=== PATIENT | female | born 1940 | race Caucasian/White ===

== ENCOUNTER 2021-04-19 10:05 | Inpatient (IN) | payer MEDICARE, OTHER ==
[~2021-04-19] VITALS: Ht 165.1 cm; Wt 57.6 kg
--- NOTE | 2021-04-19 10:05 | NUR ---
PT BIBRA 99 FROM FACILITY C/O LOW BP AROUND 80S SYSTOLIC AND WEAKNESS. PT IS AAOX1, NOT IN RESPIRATORY DISTRESS, V/S STABLE, KEPT RESTED AND COMFORTABLE. WILL CONTINUE TO MONITOR.
--- NOTE | 2021-04-19 10:17 | NUR ---
DAUGHTER AT BEDSIDE GIVING THE PATIENT'S MEDICAL HISTORY.
[2021-04-19] MEDS ORDERED: LANS15CA13 PO (10:29)
[2021-04-19] MEDS ORDERED: DULO60CA45 PO (10:29)
[2021-04-19] MEDS ORDERED: CALC1TAB30 PO (10:29)
[2021-04-19] MEDS ORDERED: HYDR500C PO (10:29)
[2021-04-19] MEDS ORDERED: TADA5TAB2 PO (10:29)
[2021-04-19] MEDS ORDERED: APIX2.5T PO (10:29)
[2021-04-19] MEDS ORDERED: LEVO50TA8 PO (10:29)
[2021-04-19] MEDS ORDERED: ROSU10TA2 PO (10:29)
[2021-04-19] MEDS ORDERED: MELA3TAB41 PO (10:29)
[2021-04-19] MEDS ORDERED: OXYB10TA30 PO (10:29)
[2021-04-19] MEDS ORDERED: MEMA10TA PO (10:29)
[2021-04-19] MEDS ORDERED: IV NS 0.9% 1,000 ML BAG IV ONE (10:30)
[2021-04-19 10:44] LABS: BASOPHILS % (AUTO) 0.2 % (0.0-2.0); EOSINOPHILS % (AUTO) 0.1 % (0.0-6.0); HEMATOCRIT 37 % (33-45); HEMOGLOBIN 10.6 g/dL (11.5-14.8); LYMPHOCYTES # (AUTO) 0.7 /CMM (0.8-4.8); LYMPHOCYTES % (AUTO) 5.2 % (20.0-44.0); MEAN CORPUSCULAR HGB CONC 29 g/dl (31.0-36.0); MEAN CORPUSCULAR VOLUME 84 fL (82-100); MONOCYTES # (AUTO) 0.9 /CMM (0.1-1.30); MONOCYTES % (AUTO) 7.1 % (2.0-12.0); NEUTROPHILS # (AUTO) 11.7 /CMM (1.8-8.9); NEUTROPHILS % (AUTO) 87.4 % (43.0-81.0); PLATELET COUNT (AUTO) 476 /CMM (150-450); RED BLOOD CELL COUNT(AUTO) 4.38 MIL/uL (4.0-5.2); WHITE BLOOD COUNT (AUTO) 13.4 K/uL (4.3-11.0)
[2021-04-19 10:58] LABS: ALANINE AMINOTRANSFERASE 22 U/L (12-78); ALBUMIN 2.9 g/dL (3.4-5.0); ALKALINE PHOSPHATASE 106 U/L (46-116); ASPARTATE AMINOTRANSFERASE 28 U/L (15-37); BILIRUBIN,DIRECT 0.1 mg/dL (0.0-0.2); BILIRUBIN,TOTAL 0.4 mg/dL (0.2-1.0); CALCIUM, SERUM 8.2 mg/dL (8.5-10.1); CARBON DIOXIDE 26 mmol/L (21-32); CHLORIDE 104 mmol/L (98-107); CREATININE 1.5 mg/dL (0.6-1.3); GLUCOSE 184 mg/dL (74-106); POTASSIUM 3.8 mmol/L (3.5-5.1); SODIUM SERUM 140 mmol/L (136-145); TOTAL PROTEIN, SERUM 6.3 g/dL (6.4-8.2); UREA NITROGEN, BLOOD 24 mg/dL (7-18)
--- NOTE | 2021-04-19 11:00 | NUR ---
PATIENT PLACED ON A BED, STS SHE NEEDS TO TRY AGAIN LATER, SHE CANNOT PROVIDE URINE AT THIS TIME.
--- NOTE | 2021-04-19 11:55 | NUR ---
On room air with spo2 of 80%. Patient is shivering, feels cold. Placed patient on 5lpm via nc with spo2 of 94%.
--- NOTE | 2021-04-19 11:56 | NUR ---
PATIENT PLACED ON A BED OLVERA.
[2021-04-19] MEDS ORDERED: PIPERACILLIN /TAZOBACTAM 3.375 G in IV D5W 50 ML IV ONE (12:00)
[2021-04-19] MEDS ORDERED: VANCOMYCIN 1 GM in IV D5W 250 ML IV ONE (12:00)
[2021-04-19] MEDS ORDERED: ACETAMINOPHEN 325 MG TABLET ONE (12:11)
--- NOTE | 2021-04-19 12:24 | NUR ---
covid negative per lab
--- NOTE | 2021-04-19 12:28 | NUR ---
room 324-2
[2021-04-19] MEDS ORDERED: ACETAMINOPHEN 325 MG TABLET PO ONE (12:30)
[2021-04-19 12:50] LABS: BILIRUBIN,URINE Negative (NEGATIVE); COLOR,URINE YELLOW (YELLOW); LEUKOCYTE ESTERASE ,URINE Moderate (NEGATIVE); NITRITE, URINE Positive (NEGATIVE); PROTEIN,URINE 30 mg/dl (NEGATIVE); UGLUCOSE Negative (NEGATIVE); UROBILINOGEN,URINE 0.2 EU/dL (0.2)
--- NOTE | 2021-04-19 12:52 | NUR ---
REPORT GIVEN TO JULIO GORMAN FOR PHILIP
--- NOTE | 2021-04-19 12:54 | NUR ---
STRAIGHT CATHETER DONE VIA STERILE TECHNIQUE, URINE SENT TO LAB.
--- NOTE | 2021-04-19 12:54 | NUR ---
PATIENT IS NOW ON 3LPM VIA NC WITH SPO2 OF 97%.
[2021-04-19 13:00] LABS: BACTERIA,URINE 2+ /HPF (None Seen); SQUAMOUS EPITHELIAL CELL,UR Few /HPF (None Seen); WBC,URINE 21-50 /HPF (0-3)
--- NOTE | 2021-04-19 13:07 | NUR ---
PATIENT TRANSFERRED TO ROOM 324 VIA ACLS PROTOCOL. NO DISTRESS NOTED. NEEDS ATTENDED.
--- NOTE | 2021-04-19 13:10 | NUR ---
RN NOTES PATIENT ARRIVED AT UNIT IN ROOM 324-2 VIA ROSANGELARNEY, ACCOMPANIED BY 2 ER NURSES. BEDSIDE ENDORSEMENT GIVEN BY JULIO VERDUGO.
--- NOTE | 2021-04-19 13:10 | NUR ---
PATTERN WEAVER NOTES RESIDENT ADMITTED FROM ER PER [place] ACCOMPANIED BY 2 NURSES. PATIENT TRANSFERRED TO BED AND COMFORT MEASURES PROVIDED. PATIENT MAINTAINED ON MODERATE TO HIGH BACK REST.PATIENT ALERT AND ORIENTED TO SELF AND DOES NOT TALK MUCH. PATIENT ENDORSED AT BEDSIDE BY DIGESTER HAND KARTIK. BODY CHECK DONE AND SKIN IS INTACT. PATIENT WITH LEFT AC G#18 PATENT AND INTACT. VITAL SIGNS WITHIN NORMAL LIMITS. NO COMPLAINT OF PAIN UPON ADMISSION. BED AT LOWEST POSITION AND LOCKED FOR SAFETY. SIDERAILS UP. WILL CONTINUE TO MONITOR PATIENT
[2021-04-19 13:11] VITALS: BP 120/54
[2021-04-19 13:20] VITALS: BP 120/54
[2021-04-19] MEDS ORDERED: ZOLPIDEM TARTRATE 5 MG TABLET PO PRN (15:00)
[2021-04-19] MEDS ORDERED: MAG HYDROX/AL HYDROX/SIMETH 30 ML UDC PO PRN (15:00)
[2021-04-19] MEDS ORDERED: MAGNESIUM HYDROXIDE 30 ML UDC PO PRN (15:00)
[2021-04-19] MEDS ORDERED: HYDROCODONE/APAP 5/325MG TABLET PO PRN (15:00)
[2021-04-19] MEDS ORDERED: Z GUARD REMEDY 2 OZ OINT TP PRN (15:00)
[2021-04-19] MEDS ORDERED: ONDANSETRON HCL/PF 4 MG/2 ML VIAL IVP PRN (15:00)
[2021-04-19] MEDS: IV NS 0.9% 1,000 ML IV SCH (15:27)
[2021-04-19 16:00] VITALS: BP 104/52
--- NOTE | 2021-04-19 16:00 | NUR ---
RN NOTES SPOKE W/ PATIENT'S DAUGHTER, INESSA, AND WAS INFORMED IF THE HOSPITALIST CAN CALL PATIENT'S DOCTOR, DR. CONSTANTIN BLANKENSHIP ([phone]), IN THE MORNING FOR AN UPDATE. WILL ENDORSE TO DIRECTOR CLINICAL DATA NURSE TO ENDORSE IN THE MORNING. Addendum: 04/19/21 at 1608 by TONEY ESTEVEZ RN DTR WILL ALSO BRING CIALIS AND MELATONIN MEDICATIONS FROM HOME.
[2021-04-19] MEDS: OXYBUTYNIN CHLORIDE ER 5 MG TAB PO SCH (17:18)
[2021-04-19] MEDS: MEMANTINE HCL 5 MG TABLET PO SCH (17:18)
[2021-04-19] MEDS: DULOXETINE HCL 30 MG CAPSULE.DR PO SCH (17:18)
[2021-04-19] MEDS: CALCIUM CARBONATE (1250) 500 MG TABLET PO SCH (17:18)
[2021-04-19] MEDS: PANTOPRAZOLE 40 MG TABLET.DR PO SCH (17:18)
[2021-04-19] MEDS: CHOLECALCIFEROL (VITAMIN D 3) 400 UNIT TABLET PO SCH (17:19)
[2021-04-19] MEDS: APIXABAN 2.5 MG TABLET PO SCH (17:37)
[2021-04-19] MEDS: PIPERACILLIN /TAZOBACTAM 3.375 G in IV D5W 50 ML IV SCH ×2 (17:39→23:15)
--- NOTE | 2021-04-19 18:28 | NUR ---
RN NOTES RECEIVED CIALIS, MELATONIN, AND DONEPEZIL MEDICATIONS FROM PATIENT'S DTR. WILL DELIVER TO PHARMACY.
[2021-04-19] MEDS: ACETAMINOPHEN 325 MG TABLET PO PRN (18:46)
--- NOTE | 2021-04-19 18:47 | NUR ---
PATIENT'S DAUGHTER SAID HER MOM COMPLAINED OF GENERALIZED ACHING PAIN OF 3/10. PATIENT WITH PRN MEDICATION ACETAMINOPHEN GIVEN ORDERED. WILL CONTINUE TO MONITOR PATIENT.
--- NOTE | 2021-04-19 19:25 | NUR ---
RN CLOSING NOTE PATIENT AWAKE AND ORIENTED X 1 WITH NO SIGNS OF DISTRESS. MAINTAINED ON NORMAL BODY ALIGNMENT. PATIENT ON OXYGEN AT 3LITERS PER MINUTE. WITH NO SIGNS OF DISTRESS. COMFORT MEASURES PROVIDED. SAFETY MEASURES MAINTAINED. BED IN LOCKED AND LOWEST POSITION, SIDE RAILS UP. ALL NEEDS MET AND ATTENDED. ENDORSED TO DAY SHIFT NURSE FOR PHILIP.
--- NOTE | 2021-04-19 19:30 | NUR ---
TELE-RN OPENING NOTE RECEIVED PATIENT RESTING IN BED. AWAKE, ALERT AND ORIENTED X 1. NO S/SX OF PAIN AT THIS TIME. IV ACCESS TO LEFT AC INTACT AND PATENT. CONTINUES ON IVF NS @ 100ML/HR. CONTINUES ON IV ABX. TELE MONITOR READING SR 90. CONTINUES ON 3L O2 VIA NC WITH NO S/SX OF RESPIRATORY DISTRESS NOTED. CALL LIGHT WITHIN REACH. ASPIRATION, FALL AND SAFETY PRECAUTIONS MAINTAINED. WILL CONTINUE TO MONITOR.
--- NOTE | 2021-04-19 19:45 | NUR ---
TELE-RN NOTE RECEIVED CALL FROM LAB WITH NEW LACTIC ACID LEVEL OF 2.4. LACTIC ACID IS DOWNTRENDING AT THIS TIME. MD AWARE. WILL CONTINUE TO MONITOR.
[2021-04-19 20:00] VITALS: BP 106/56
--- NOTE | 2021-04-19 20:45 | NUR ---
TELE-RN NOTE PATIENT NOTED WITH TEMP OF 99.3. FACIAL FLUSHING NOTED. INITIATED COOLING MEASURES. WILL RECHECK TEMP.
[2021-04-19] MEDS: DONEPEZIL 5 MG TABLET PO SCH (21:03)
[2021-04-20] VITALS: BP 127/95
[2021-04-20] MEDS: ACETAMINOPHEN 325 MG TABLET PO PRN ×3 (02:00→14:56)
[2021-04-20] MEDS: IV NS 0.9% 1,000 ML IV SCH (02:00)
--- NOTE | 2021-04-20 02:00 | NUR ---
TELE-RN NOTE PATIENT NOTED WITH TEMP OF 101.8. CONTINUING COOLING MEASURES AND ADMINISTERED TYLENOL WITH PENDING EFFECT. BLOOD CX FROM 04/19 PENDING. SEQUINS SPOOLER MD WILKES NOTIFIED WITH NO NEW ORDERS AT THIS TIME. WILL CONTINUE TO MONITOR.
[2021-04-20 04:00] VITALS: BP 124/64
--- NOTE | 2021-04-20 04:28 | NUR ---
TELE-RN NOTE PATIENTS IV TO LEFT AC INFILTRATED. NO S/SX OF SWELLING AT OLD IV SITE. IV REMOVED AND PRESSURE DRESSING APPLIED. NEW IV INSERTED TO RIGHT HAND #20G. CONTINUES ON IVF NS @ 100ML/HR. WILL CONTINUE TO MONITOR.
[2021-04-20] MEDS: PIPERACILLIN /TAZOBACTAM 3.375 G in IV D5W 50 ML IV SCH ×4 (05:02→23:49)
[2021-04-20 06:11] LABS: BASOPHILS % (AUTO) 0.1 % (0.0-2.0); EOSINOPHILS % (AUTO) 0.1 % (0.0-6.0); HEMATOCRIT 35 % (33-45); HEMOGLOBIN 10.1 g/dL (11.5-14.8); LYMPHOCYTES # (AUTO) 0.7 /CMM (0.8-4.8); LYMPHOCYTES % (AUTO) 4.7 % (20.0-44.0); MEAN CORPUSCULAR HGB CONC 29 g/dl (31.0-36.0); MEAN CORPUSCULAR VOLUME 83 fL (82-100); MONOCYTES # (AUTO) 0.7 /CMM (0.1-1.30); MONOCYTES % (AUTO) 4.8 % (2.0-12.0); NEUTROPHILS # (AUTO) 12.7 /CMM (1.8-8.9); NEUTROPHILS % (AUTO) 90.3 % (43.0-81.0); PLATELET COUNT (AUTO) 522 /CMM (150-450); RED BLOOD CELL COUNT(AUTO) 4.17 MIL/uL (4.0-5.2)
--- NOTE | 2021-04-20 06:30 | NUR ---
TELE-RN CLOSING NOTE PATIENT CURRENTLY SLEEPING IN BED. ALERT AND ORIENTED X 1. NO S/SX OF PAIN AT THIS TIME. IV ACCESS TO RIGHT HAND INTACT AND PATENT. CONTINUES ON IVF NS @ 100ML/HR. CONTINUES ON IV ABX. TELE MONITOR READING SR 97. CONTINUES ON 3L O2 VIA NC WITH NO S/SX OF RESPIRATORY DISTRESS NOTED. PATIENT AFEBRILE WITH NO FACIAL FLUSHING NOTED. CALL LIGHT WITHIN REACH. ASPIRATION, FALL AND SAFETY PRECAUTIONS MAINTAINED. WILL ENDORSE PLAN OF CARE TO ONCOMING SHIFT.
[2021-04-20 06:56] LABS: CHOLESTEROL 99 mg/dL (<200); HDL CHOLESTEROL 36 mg/dL (40-60); LDL 36 mg/dL (0-99); TRIGLYCERIDES 118 mg/dL (30-150)
[2021-04-20 06:58] LABS: CALCIUM, SERUM 7.3 mg/dL (8.5-10.1); CARBON DIOXIDE 25 mmol/L (21-32); CHLORIDE 106 mmol/L (98-107); CREATININE 1.4 mg/dL (0.6-1.3); GLUCOSE 130 mg/dL (74-106); MAGNESIUM 1.9 mg/dL (1.8-2.4); PHOSPHORUS 3.8 mg/dL (2.5-4.9); POTASSIUM 3.5 mmol/L (3.5-5.1); SODIUM SERUM 141 mmol/L (136-145); UREA NITROGEN, BLOOD 20 mg/dL (7-18)
--- NOTE | 2021-04-20 07:56 | NUR ---
DOMESTIC VIOLENCE COUNSELOR OPENING NOTE PATIENT IS IN NO ACUTE DISTRESS, PATIENT IS IN BE RESTING. PATIENT IS ON 3L OXYGEN ON NC. PATIENT IS ON TELE MONITOR READING SR WITH PVCs HEAR RATE 90s. SAFETY PRECAUTIONS ARE ON. BED IS LOCKED IN THE LOWEST POSITION, WITH SIDE RAILS UP, CALL LIGHT WITHIN THE REACH, WILL CONTINUE TO MONITOR CLOSELY.
[2021-04-20 08:25] VITALS: BP 113/88
[2021-04-20] MEDS: LEVOTHYROXINE SODIUM 50 MCG TABLET PO SCH (08:45)
[2021-04-20] MEDS: PANTOPRAZOLE 40 MG TABLET.DR PO SCH ×2 (08:46→17:57)
[2021-04-20] MEDS: ATORVASTATIN 10 MG TABLET PO SCH (08:46)
[2021-04-20] MEDS: TADALAFIL 2.5 MG PO SCH ×2 (08:46→17:56)
[2021-04-20] MEDS: CHOLECALCIFEROL (VITAMIN D 3) 400 UNIT TABLET PO SCH ×2 (08:46→17:56)
[2021-04-20] MEDS: MEMANTINE HCL 5 MG TABLET PO SCH ×2 (08:46→17:56)
[2021-04-20] MEDS: CALCIUM CARBONATE (1250) 500 MG TABLET PO SCH ×2 (08:46→17:55)
[2021-04-20] MEDS: HYDROXYUREA 500 MG CAPSULE PO SCH (08:47)
[2021-04-20] MEDS: APIXABAN 2.5 MG TABLET PO SCH ×2 (08:49→17:56)
--- NOTE | 2021-04-20 08:52 | NUR ---
VICE PRESIDENT INVESTOR RELATIONS NOTE PATIENT HAS A FEVER OF 103, COOLING MEASURES APPLIED, TYLENOL 650MG ADMINISTERED, WILL REASSESS.
[2021-04-20] MEDS ORDERED: VANCOMYCIN HCL 0.75 GM in IV D5W 250 ML IV SCH (13:00)
--- NOTE | 2021-04-20 13:00 | NUR ---
NEUROSURGICAL NURSE NOTE PATIENT HAD A MIDLINE INSERTION BISHNU 18 AT LEFT UPPER ARM
[2021-04-20] MEDS ORDERED: ACETAMINOPHEN 325 MG TABLET PO PRN (15:00)
[2021-04-20 15:53] VITALS: BP 130/81
[2021-04-20] MEDS: DULOXETINE HCL 30 MG CAPSULE.DR PO SCH (17:55)
[2021-04-20] MEDS: OXYBUTYNIN CHLORIDE ER 5 MG TAB PO SCH (17:56)
[2021-04-20] MEDS: MELATONIN 3MG PO SCH (17:57)
--- NOTE | 2021-04-20 19:24 | NUR ---
WEB APPLICATIONS ARCHITECT CLOSING NOTE PATIENT IS IN NO ACUTE DISTRESS, PATIENT IS IN BE RESTING. PATIENT IS ON 3L OXYGEN ON NC. PATIENT IS ON TELE MONITOR READING SR WITH PVCs HEAR RATE 80ss. SAFETY PRECAUTIONS ARE ON. BED IS LOCKED IN THE LOWEST POSITION, WITH SIDE RAILS UP, CALL LIGHT WITHIN THE REACH, ENDORSE PATIENT TO YARN COMBER NURSE FOR PHILIP.
[2021-04-20 20:00] VITALS: BP 115/59
[2021-04-20] MEDS: DONEPEZIL 5 MG TABLET PO SCH (22:11)
[2021-04-21] VITALS: BP 116/56
[2021-04-21] MEDS: ACETAMINOPHEN 325 MG TABLET PO PRN ×3 (01:12→17:10)
--- NOTE | 2021-04-21 01:16 | NUR ---
MS/TELE/RN TEMP 100.0 F, TYLENOL 650 MG PO WAS GIVEN ORDERED. WILL MONITOR.
[2021-04-21 04:00] VITALS: BP 105/56
[2021-04-21] MEDS: IV NS 0.9% 1,000 ML IV PRN ×2 (04:06→18:30)
[2021-04-21] MEDS: PIPERACILLIN /TAZOBACTAM 3.375 G in IV D5W 50 ML IV SCH ×3 (06:08→18:18)
--- NOTE | 2021-04-21 06:14 | NUR ---
MS/TELE/RN PATIENT IS STILL SLEEPING AT THIS TIME, APPEAR COMFORTABLE, NO SIGNS OF DISTRESS NOTED, CALL LIGHT IN REACH, ALL NEEDS ATTENDED AT THIS TIME, WILL CONTINUE TO MONITOR.
[2021-04-21 06:48] LABS: BASOPHILS # (AUTO) 0.1 /CMM (0.0-0.2); BASOPHILS % (AUTO) 0.4 % (0.0-2.0); EOSINOPHILS % (AUTO) 0.1 % (0.0-6.0); HEMATOCRIT 31 % (33-45); HEMOGLOBIN 9.3 g/dL (11.5-14.8); LYMPHOCYTES # (AUTO) 0.7 /CMM (0.8-4.8); LYMPHOCYTES % (AUTO) 5.1 % (20.0-44.0); MEAN CORPUSCULAR HGB CONC 30 g/dl (31.0-36.0); MEAN CORPUSCULAR VOLUME 83 fL (82-100); MONOCYTES % (AUTO) 7.3 % (2.0-12.0); NEUTROPHILS # (AUTO) 12.5 /CMM (1.8-8.9); NEUTROPHILS % (AUTO) 87.1 % (43.0-81.0); PLATELET COUNT (AUTO) 583 /CMM (150-450); RED BLOOD CELL COUNT(AUTO) 3.77 MIL/uL (4.0-5.2); WHITE BLOOD COUNT (AUTO) 14.3 K/uL (4.3-11.0)
--- NOTE | 2021-04-21 07:58 | NUR ---
RN/TELE OPENING NOTES RECEIVED PATIENT IN BED. ASLEEP BUT EASILY WOKEN UP WITH VERBAL CUES. PATIENT IS ON 2LPM OF OXYGEN ON NASAL CANNULA. PATIENT IS ON TELE MONITOR READING SR HEAR RATE AT 78. SAFETY PRECAUTIONS IN PLACE. BED IS LOCKED IN THE LOWEST POSITION, WITH SIDE RAILS UP, CALL LIGHT WITHIN THE REACH, WILL CONTINUE TO MONITOR..
[2021-04-21 08:12] VITALS: BP 109/54
[2021-04-21] MEDS: LEVOTHYROXINE SODIUM 50 MCG TABLET PO SCH (08:16)
[2021-04-21] MEDS: MEMANTINE HCL 5 MG TABLET PO SCH ×2 (09:20→17:07)
[2021-04-21] MEDS: ATORVASTATIN 10 MG TABLET PO SCH (09:20)
[2021-04-21] MEDS: CALCIUM CARBONATE (1250) 500 MG TABLET PO SCH ×2 (09:20→17:07)
[2021-04-21] MEDS: PANTOPRAZOLE 40 MG TABLET.DR PO SCH ×2 (09:20→17:07)
[2021-04-21] MEDS: CHOLECALCIFEROL (VITAMIN D 3) 400 UNIT TABLET PO SCH ×2 (09:20→17:07)
[2021-04-21] MEDS: APIXABAN 2.5 MG TABLET PO SCH ×2 (09:21→17:08)
[2021-04-21] MEDS: TADALAFIL 2.5 MG PO SCH (09:24)
[2021-04-21] MEDS: HYDROXYUREA 500 MG CAPSULE PO SCH (09:24)
[2021-04-21 11:08] LABS: CALCIUM, SERUM 7.2 mg/dL (8.5-10.1); CREATININE 1.3 mg/dL (0.6-1.3); MAGNESIUM 1.9 mg/dL (1.8-2.4); PHOSPHORUS 2.7 mg/dL (2.5-4.9); POTASSIUM 3.4 mmol/L (3.5-5.1)
[2021-04-21] MEDS: VANCOMYCIN 1 GM in IV D5W 250 ML IV SCH (14:37)
[2021-04-21 16:00] VITALS: BP 110/54
[2021-04-21] MEDS: DULOXETINE HCL 30 MG CAPSULE.DR PO SCH (17:07)
[2021-04-21] MEDS: OXYBUTYNIN CHLORIDE ER 5 MG TAB PO SCH (17:07)
--- NOTE | 2021-04-21 17:52 | NUR ---
CLINICAL LABORATORY ASSISTANT NOTES PER MD OK TO CHANGE ADMINISTRATION TIME OF DONEPEZIL FROM 2200 TO 1800 PER FAMILY'S REQUEST.
[2021-04-21] MEDS: DONEPEZIL 5 MG TABLET PO SCH (18:19)
[2021-04-21] MEDS: MELATONIN 3MG PO SCH (18:19)
--- NOTE | 2021-04-21 19:28 | NUR ---
MS/RN CLOSING NOTES RECEIVED PATIENT IN BED. RESTING. ALERT AND ORIENTED X1-2. PATIENT IS ON 2LPM OF OXYGEN ON NASAL CANNULA. PATIENT DISCHARGED FROM TELE AND NOW ON MED/SURG. SAFETY PRECAUTIONS IN PLACE. BED IS LOCKED IN THE LOWEST POSITION, WITH SIDE RAILS UP, CALL LIGHT WITHIN THE REACH, WILL ENDORSE TO THE NEXT SHIFT FOR CONTINUITY OF CARE.
[2021-04-21 20:00] VITALS: BP 105/57
--- NOTE | 2021-04-21 20:00 | NUR ---
MS/TELE/RN PATIENT IS SLEEPING, APPEAR COMFORTABLE, NO SIGNS OF DISTRESS NOTED, CALL LIGHT IN REACH, WILL MONITOR.
[2021-04-21 20:10] VITALS: BP 105/57
--- NOTE | 2021-04-21 21:10 | NUR ---
MS/TELE/ POTASSIUM LEVEL THIS MORNING WAS 3.4, NOT REPLACED, NOTIFIED JESSICA MARROQUIN DNP, NO ORDER WAS RECEIVED.
[2021-04-22] MEDS: PIPERACILLIN /TAZOBACTAM 3.375 G in IV D5W 50 ML IV SCH ×5 (00:05→23:54)
[2021-04-22] MEDS: ACETAMINOPHEN 325 MG TABLET PO PRN ×3 (05:14→23:49)
[2021-04-22] MEDS: IV NS 0.9% 1,000 ML IV PRN (05:14)
--- NOTE | 2021-04-22 06:06 | NUR ---
MS/TELE/RN PATIENT IS SLEEPING AT THIS TIME, APPEAR COMFORTABLE, NO SIGNS OF DISTRESS NOTED, CALL LIGHT IN REACH. PATIENT HAD WAS SLEEPING MOSTLY DURING THE SHIFT, WAS AWAKE AT AROUND 0500 DURING MORNING CARE. ALL NEEDS ATTENDED AT THIS TIME, WILL CONTINUE TO MONITOR.
[2021-04-22 06:41] LABS: BASOPHILS # (AUTO) 0.1 /CMM (0.0-0.2); BASOPHILS % (AUTO) 0.5 % (0.0-2.0); EOSINOPHILS % (AUTO) 0.3 % (0.0-6.0); HEMATOCRIT 32 % (33-45); HEMOGLOBIN 9.6 g/dL (11.5-14.8); LYMPHOCYTES # (AUTO) 0.4 /CMM (0.8-4.8); MEAN CORPUSCULAR HGB CONC 30 g/dl (31.0-36.0); MEAN CORPUSCULAR VOLUME 82 fL (82-100); MONOCYTES % (AUTO) 7.1 % (2.0-12.0); NEUTROPHILS # (AUTO) 12.5 /CMM (1.8-8.9); NEUTROPHILS % (AUTO) 89.1 % (43.0-81.0); PLATELET COUNT (AUTO) 711 /CMM (150-450); RED BLOOD CELL COUNT(AUTO) 3.92 MIL/uL (4.0-5.2)
[2021-04-22 07:00] LABS: CALCIUM, SERUM 7.1 mg/dL (8.5-10.1); MAGNESIUM 1.9 mg/dL (1.8-2.4); PHOSPHORUS 1.7 mg/dL (2.5-4.9); POTASSIUM 3.2 mmol/L (3.5-5.1)
[2021-04-22 07:07] LABS: PTH, INTACT 94 pg/mL (15-65)
[2021-04-22] MEDS ORDERED: POTASSIUM CHLORIDE 20 MEQ TAB.PRT.SR PO ONE (07:30)
[2021-04-22] MEDS: LEVOTHYROXINE SODIUM 50 MCG TABLET PO SCH (07:39)
--- NOTE | 2021-04-22 07:56 | NUR ---
MS/RN OPENING NOTES RECEIVED PATIENT IN BED. AWAKE, ALERT AND ORIENTED X1-2. ABLE TO MAKE NEEDS KNOWN. PATIENT IS ON 2LPM OF OXYGEN ON NASAL CANNULA. PATIENT COMFORTABLE AT THIS TIME. NO S/S OF SOB OR DISTRESS NOTED. SAFETY PRECAUTIONS IN PLACE. BED IS LOCKED IN THE LOWEST POSITION, WITH SIDE RAILS UP, CALL LIGHT WITHIN THE REACH, WILL CONTINUE TO MONITOR PATIENT.
[2021-04-22 08:00] VITALS: BP 122/54
[2021-04-22] MEDS: MEMANTINE HCL 5 MG TABLET PO SCH ×2 (08:24→17:59)
[2021-04-22] MEDS: ATORVASTATIN 10 MG TABLET PO SCH (08:24)
[2021-04-22] MEDS: CALCIUM CARBONATE (1250) 500 MG TABLET PO SCH ×2 (08:25→17:59)
[2021-04-22] MEDS: PANTOPRAZOLE 40 MG TABLET.DR PO SCH ×2 (08:25→18:00)
[2021-04-22] MEDS: CHOLECALCIFEROL (VITAMIN D 3) 400 UNIT TABLET PO SCH ×2 (08:25→18:00)
[2021-04-22] MEDS: APIXABAN 2.5 MG TABLET PO SCH ×2 (08:30→18:00)
[2021-04-22] MEDS: HYDROXYUREA 500 MG CAPSULE PO SCH (09:20)
[2021-04-22] MEDS ORDERED: NEUTRA PHOS 1 POWD.PACKET PO ONE (11:30)
[2021-04-22] MEDS: VANCOMYCIN 1 GM in IV D5W 250 ML IV SCH (14:34)
[2021-04-22 16:00] VITALS: BP 136/75
[2021-04-22] MEDS: DULOXETINE HCL 30 MG CAPSULE.DR PO SCH (17:58)
[2021-04-22] MEDS: DONEPEZIL 5 MG TABLET PO SCH (17:59)
[2021-04-22] MEDS: OXYBUTYNIN CHLORIDE ER 5 MG TAB PO SCH (17:59)
[2021-04-22] MEDS: MELATONIN 3MG PO SCH (18:36)
--- NOTE | 2021-04-22 19:30 | NUR ---
MS/RN CLOSING NOTES PATIENT IN BED. AWAKE, ALERT AND ORIENTED X1-2. ABLE TO MAKE NEEDS KNOWN. PATIENT IS ON 2LPM OF OXYGEN ON NASAL CANNULA. PATIENT COMFORTABLE AT THIS TIME. NO S/S OF SOB OR DISTRESS NOTED. SAFETY PRECAUTIONS IN PLACE. BED IS LOCKED IN THE LOWEST POSITION, WITH SIDE RAILS UP, CALL LIGHT WITHIN THE REACH, WILL ENDORSE TO THE NEXT SHIFT FOR CONTINUITY OF CARE.
--- NOTE | 2021-04-22 19:47 | NUR ---
MS RN OPENING PATIENT IN BED WITH EYES CLOSED BUT EASY TO AROUSE. NO S/S OF DISTRESS. NO C/O PAIN. FLUIDS RUNNING TO KVO ONLY. WALKER NOTED IN THE ROOM. SAFETY PRECAUTIONS IN PLACE: BED IN LOWEST, LOCKED POSITION. CALL LIGHT WITHIN REACH. WILL CONTINUE TO MONITOR.
[2021-04-22 20:00] VITALS: BP 151/76
[2021-04-22 21:31] VITALS: BP 151/76
--- NOTE | 2021-04-23 00:03 | NUR ---
MS RN NOTES PATIENT C/O HEAD ACHE AND ASKED FOR TYLENOL. GIVEN PRN.
[2021-04-23 05:07] LABS: *SPE ALBUMIN 2.5 g/dL (2.9-4.4); *SPE ALPHA-1-GLOBULIN 0.2 g/dL (0.0-0.4); *SPE ALPHA-2-GLOBULIN 0.9 g/dL (0.4-1.0); *SPE BETA GLOBULIN 0.7 g/dL (0.7-1.3); *SPE GLOBULIN, TOTAL 2.4 g/dL (2.2-3.9); *SPE M-SPIKE Not Observed g/dL (Not Observed); *SPEGAMMA GLOBULIN 0.7 g/dL (0.4-1.8)
[2021-04-23] MEDS: PIPERACILLIN /TAZOBACTAM 3.375 G in IV D5W 50 ML IV SCH ×2 (05:53→11:34)
[2021-04-23 06:06] LABS: BASOPHILS % (AUTO) 0.3 % (0.0-2.0); EOSINOPHILS % (AUTO) 1.3 % (0.0-6.0); HEMATOCRIT 32 % (33-45); HEMOGLOBIN 9.8 g/dL (11.5-14.8); LYMPHOCYTES # (AUTO) 0.7 /CMM (0.8-4.8); LYMPHOCYTES % (AUTO) 6.4 % (20.0-44.0); MEAN CORPUSCULAR HGB CONC 30 g/dl (31.0-36.0); MEAN CORPUSCULAR VOLUME 83 fL (82-100); MONOCYTES # (AUTO) 0.8 /CMM (0.1-1.30); MONOCYTES % (AUTO) 6.8 % (2.0-12.0); NEUTROPHILS # (AUTO) 9.4 /CMM (1.8-8.9); NEUTROPHILS % (AUTO) 85.2 % (43.0-81.0); PLATELET COUNT (AUTO) 775 /CMM (150-450); RED BLOOD CELL COUNT(AUTO) 3.88 MIL/uL (4.0-5.2); WHITE BLOOD COUNT (AUTO) 11.1 K/uL (4.3-11.0)
[2021-04-23 06:15] LABS: CALCIUM, SERUM 7.5 mg/dL (8.5-10.1); CREATININE 0.9 mg/dL (0.6-1.3); MAGNESIUM 2.3 mg/dL (1.8-2.4); PHOSPHORUS 1.6 mg/dL (2.5-4.9); POTASSIUM 3.7 mmol/L (3.5-5.1)
--- NOTE | 2021-04-23 06:32 | NUR ---
MS RN CLOSING PATIENT IN BED WITH EYES CLOSED, EASY TO AROUSE. A/OX4 . NO S/S OF DISTRESS, TOLERATING ROOM AIR. NO C/O PAIN DENAE.SCHEDULED MEDS ADMINISTERED. ABLE TO MAKE NEEDS KNOWN, ALL NEEDS ATTENDED. COMMODE ON BED SIDE. WALKER NOTED IN THE ROOM. SAFETY KEPT IN PLACE THE WHOLE SHIFT: BED IN LOWEST, LOCKED POSITION; CALL LIGHT WITHIN REACH. NO SIGNIFICANT CHANGE SINCE LAST SHIFT. WILL ENDORSE CARE TO MORNING RN.
--- NOTE | 2021-04-23 07:05 | NUR ---
MS RN NOTES RECEIVED PT AWAKE IN BED, AOX4. ABLE TO COMMUNICATE NEEDS. NO SOB NOTE, NO C/O PAIN AT THIS TIME, NO S/O ANY ACUTE DISTRESS NOTED. RESPIRATIONS IS EVEN AND UNLABORED. PT IS STABLE ON RA. DARYN MIDLINE NOTED, INTACT, PATENT AND FLUSHING WELL. SAFETY PRECAUTIONS IN PLACE AND MAINTAINED AT ALL TIMES. BED IN LOWEST LOCKED POSITION, HOB ELEVATED, SIDE RAILS UP X2, CALL LIGHT AND TABLE WITHIN REACH. WILL CONTINUE TO MONITOR
[2021-04-23] MEDS: LEVOTHYROXINE SODIUM 50 MCG TABLET PO SCH (08:33)
[2021-04-23] MEDS: CHOLECALCIFEROL (VITAMIN D 3) 400 UNIT TABLET PO SCH (08:33)
[2021-04-23] MEDS: PANTOPRAZOLE 40 MG TABLET.DR PO SCH (08:36)
[2021-04-23] MEDS: MEMANTINE HCL 5 MG TABLET PO SCH (08:36)
[2021-04-23] MEDS: APIXABAN 2.5 MG TABLET PO SCH (08:36)
[2021-04-23] MEDS: ATORVASTATIN 10 MG TABLET PO SCH (08:37)
[2021-04-23] MEDS: CALCIUM CARBONATE (1250) 500 MG TABLET PO SCH (08:37)
[2021-04-23] MEDS: HYDROXYUREA 500 MG CAPSULE PO SCH (08:40)
[2021-04-23] MEDS ORDERED: K PHOS NEUTRAL 250 MG TABLET PO ONE (10:30)
[2021-04-23] MEDS: VANCOMYCIN 1 GM in IV D5W 250 ML IV SCH (14:18)
[2021-04-23] MEDS: ACETAMINOPHEN 325 MG TABLET PO PRN (14:35)
--- NOTE | 2021-04-23 15:50 | NUR ---
PRODUCT ADVISOR NOTED PT DISCHARGE HOME WITH HOSPICE AT THIS TIME. PT MEDICALLY STABLE AND CLEARED FOR DISCHARGE BY DR OLIVO. ALL DISCHARGE INSTRUCTIONS PROVIDED TO PT AND DAUGHTER. PT VERBALIZED UNDERSTANDING. PT KEPT CLEAN AND DRY. ALL BELONGINGS ACCOUNTED FOR, SIGNED BY PT'S DAUGHTER AND WITH PT. IV ACCESS REMOVED, PRESSURE APPLIED, SECURED WITH GAUZE AND TAPE, NO SIGN OF BLEEDING OR INFILTRATION NOTED. ID BAND REMOVED. PATIENTS MEDICATION PICKED UP FROM PHARMACY AND RETURNED TO PATIENT. PT LEFT UNIT IN STABLE CONDITION, TRANSPORTED BY TWO AMBULANCE PERSONNEL. LANG, CHARGE NURSE AND DR OLIVO AWARE
== END 2021-04-23 16:00 | disposition hospice, home (50) | DRG 871 ==
LOC: ER 10:08 → TELE 12:39 → MED 04-21 08:25
PROVIDERS: ADMIT Family Medicine; ATTEND Student in an Organized Health Care Education/Training Program
PROC: 05HC33Z Insertion of Infusion Device into Left Basilic Vein, Percutaneous Approach (ICD-10-PCS; principal; 2021-04-20)
DX: A41.9 Sepsis, unspecified organism (principal); J15.9 Unspecified bacterial pneumonia; N17.0 Acute kidney failure with tubular necrosis; N39.0 Urinary tract infection, site not specified; E44.0 Moderate protein-calorie malnutrition; E87.2 Acidosis; N18.9 Chronic kidney disease, unspecified; K21.9 Gastro-esophageal reflux disease without esophagitis; N32.81 Overactive bladder; Z20.822 Contact with and (suspected) exposure to COVID-19; R73.9 Hyperglycemia, unspecified; E78.5 Hyperlipidemia, unspecified; E83.51 Hypocalcemia; E03.9 Hypothyroidism, unspecified; F32.9 Major depressive disorder, single episode, unspecified; F03.90 Unspecified dementia, unspecified severity, without behavioral disturbance, psychotic disturbance, mood disturbance, and anxiety; Z66 Do not resuscitate; B96.20 Unspecified Escherichia coli [E. coli] as the cause of diseases classified elsewhere
CPT/HCPCS: 36410; 36415; 71045-TC; 80048-TC; 80061-TC; 80076-TC; 80202-TC; 81001; 82550-TC; 82553; 83605-TC; 83735-TC; 83970; 84100-TC; 84155; 84165; 84484-TC; 85025-TC; 85730-TC; 87040-TC; 87081-TC; 87086-TC; 87186-TC; 94799-TC; 97116-TC; 97530-TC; C9803; G0378; J2543; J3370; J7030; J7060